=== PATIENT | female | born 1995 | race Caucasian/White ===

== ENCOUNTER 2016-11-08 02:53 | Emergency (ER) | payer BC ==
[2016-11-08 03:00] VITALS: TEMP 98.4
[2016-11-08] MEDS ORDERED: LETS SOLN TOPICAL 1 EA SYR TP ONE (03:13)
--- NOTE | 2016-11-08 03:39 | EDPHY ---
[id number]: HPI: The patient presents with left eyebrow lacerations sustained about 1 hour prior to arrival. She was out drinking alcohol with [facility] She went to the bathroom, began to feel dizzy and fell forward hitting her left eyebrow on the toilet bowl. She did not lose consciousness. She does not have any headache, nausea or vomiting, vision changes, dizziness or unilateral numbness or weakness. She did not injure her eye. REVIEW OF SYSTEMS Constitutional: No fever, no chills. Eyes: No discharge. Skin: No rashes. Neurological: No headache. PMHx: Healthy, visiting from [place] where she goes to [employer] General Appearance: Alert, no distress Head: Left-sided eyebrow laceration which is 3 cm and gaping Eyes: Pupils equal, round, reactive ENT, Mouth: No hemotypanium, no oral trauma Neck: Non- tender, trachea midline Respiratory: No chest wall tenderness, no subcutaneous air, lungs clear bilaterallty Cardiovascular: Regular rate and rhythm Abdomen: Abdomen is soft and non-tender, pelvis stable Skin: No abrasion Extremities: Non-tender, full range of motion Neurological: A&Ox3, GCS=15,normal motor function with 5/5 strength in all 4 extremities, normal sensory exam Source: Patient Exam Limitations: No limitations - Personal History Current Tetanus/Diphtheria Vaccine: Yes Current Tetanus Diphtheria and Acellular Pertussis (TDAP): Yes - Medical/Surgical History Hx Asthma: No Hx Chronic Respiratory Disease: No Hx Diabetes: No Hx Cardiac Disease: No Hx Renal Disease: No Hx Cirrhosis: No Hx Alcoholism: No Hx HIV/AIDS: No Hx Splenectomy or Spleen Trauma: No Other PMH: DENIES - Social History Smoking Status: Never smoked Constitutional: Initial Vital Signs Temperature (C) 36.9 C 11/08/16 02:55 Heart Rate 115 H 11/08/16 02:55 Respiratory Rate 18 11/08/16 02:55 Blood Pressure 119/77 11/08/16 02:55 O2 Sat (%) 97 11/08/16 02:55 O2 Delivery Mode Room Air Allergies/Adverse Reactions: No Known Allergies Allergy (Unverified 11/08/16 02:59) Home Medications: Medication Instructions Recorded NK [No Known Home Meds] 11/08/16 Medical Decision Making Procedures: LACERATION REPAIR Procedure: Laceration repair. Verbal consent was obtained from the patient. The linear 3 cm laceration on the left eyebrow was anesthetized using bupivacaine with epinephrine. The wound was scrubbed, draped and explored to its base with a gloved finger. There were no deep structures involved. No tendon injury was identified. . The wound was repaired with 6.0 Prolene suture. The wound repair was simple. The procedure was performed by myself. Differential Diagnosis: This is a 21-year-old female who presents with left eyebrow laceration which occurred in the setting of alcohol use, and falling hitting her head on a toilet. It seems that she had a presyncopal episode with this. She does not appear to have sustained any serious head injury, she is clear by nexus 2 criteria. She will be discharged home after laceration is repaired. Departure - Departure Disposition: Home, Routine, Self-Care Clinical Impression: Laceration of eyebrow, left Condition: Good Instructions: Care For Your Stitches (ED), Facial Laceration (ED) Additional Instructions: Please return to the ER if you have any worsening pain, redness, swelling, or are worse in any way. YOUR STITCHES SHOULD BE REMOVED IN 5 DAYS- Oct. Referrals: OUT OF STATE,. [Primary Care Provider] - As per Instructions
[2016-11-08 04:08] VITALS: BP 110/68; PULSE 88; RESP 16; O2SAT 98
== END 2016-11-08 04:07 | disposition home or self-care (01) ==
PROC: 0HQ1XZZ Repair Face Skin, External Approach (ICD-10-PCS; principal; 2016-11-08)
DX: S01.122A Laceration with foreign body of left eyelid and periocular area, initial encounter (principal); W01.198A Fall on same level from slipping, tripping and stumbling with subsequent striking against other object, initial encounter; Y92.002 Bathroom of unspecified non-institutional (private) residence as the place of occurrence of the external cause